=== PATIENT | female | born 1985 | race Two or more races ===

== ENCOUNTER → 2024-02-29 13:45 | Outpatient (REF) | payer BC, SELFPAY | LOC: HWRAD 13:45 | PROVIDERS: ATTENDING PHYSICIAN Advanced Practice Midwife; FAMILY PHYSICIAN Family Medicine | DX: N92.4 Excessive bleeding in the premenopausal period (principal) | CPT/HCPCS: 76830; 76856 ==

== ENCOUNTER 2024-03-29 06:51 | Day surgery (SDC) | payer BC, SELFPAY ==
[2024-03-24 13:41] VITALS: BMI 31.2
[2024-03-24 13:44] LABS: % Basophils 0.7 % (0-2); % Eosinophils 1.9 % (0-6); % Immature Granulocytes 0.4 % (0-0.5); % Lymphocytes 32.7 % (20.5-51.1); % Monocytes 5.3 % (1.7-9.3); Absolute Basophils 0.1 10^3/uL (0-0.2); Absolute Eosinophils 0.1 10^3/uL (0-0.7); Absolute Lymphocytes 2.2 10^3/uL (1.2-3.4); Absolute Monocytes 0.4 10^3/uL (0.1-0.6); Mean Corpuscular Hgb 28.2 pg (27.0-31.0); Mean Corpuscular Volume 80.6 fL (81.0-99.0); Mean Platelet Volume 9.9 fL (7.4-10.4); Nucleated Red Blood Cells % 0 %; Platelet Count 274 10^3/uL (130-400); Red Blood Cell Count 4.96 10^6/uL (4.20-5.40); Red Cell Dist. Width 12.6 % (11.5-14.5); White Blood Cell Count 6.8 10^3/uL (4.8-10.8)
[2024-03-24 13:57] LABS: Blood Urea Nitrogen 12 mg/dl (7-17); Calcium 9.8 mg/dl (8.4-10.2); Carbon Dioxide 31 mmol/L (22-30); Chloride 98 mmol/L (98-107); Estimated Creatinine Clearance 106 ml/min; Glucose 142 mg/dl (70-99); Sodium 135 mmol/L (135-145); eGFR > 60.00
[2024-03-24 14:35] LABS: HCG, Urine Qualitative Screen Negative
[2024-03-29 09:31] VITALS: BMI 31.2
[2024-03-29 09:39] LABS: Glucose - Point of Care 218 mg/dl (70-99)
[2024-03-29 09:43] VITALS: BP 126/78
[2024-03-29] MEDS: CELEBREX 200 MG PO (09:51)
[2024-03-29] MEDS: NORMOSOL-R 1000 IV (09:51)
[2024-03-29] MEDS: TYLENOL 1000 MG PO (09:51)
[2024-03-29] MEDS: NOVOLOG vial 2 UNITS SC (09:52)
[2024-03-29 11:46] VITALS: BP 126/78; BP 128/79
[2024-03-29 11:52] LABS: Glucose - Point of Care 180 mg/dl (70-99)
[2024-03-29 12:00] VITALS: BP 122/72
[2024-03-29 12:15] VITALS: BP 121/71
[2024-03-29 12:25] VITALS: BP 123/77
[2024-03-29 12:50] VITALS: BP 121/75
== END 2024-03-29 13:11 | disposition home or self-care (01) ==
LOC: SDS 06:51
PROVIDERS: ATTENDING PHYSICIAN Obstetrics & Gynecology; FAMILY PHYSICIAN Family Medicine
DX: N92.0 Excessive and frequent menstruation with regular cycle (principal); N84.0 Polyp of corpus uteri
CPT/HCPCS: 58558; 88305; 36415; 80048; 81025; 82962; 85025; 86850; 86900; 86901

== ENCOUNTER → 2024-12-23 09:56 | Outpatient (REF) | payer BC, SELFPAY | LOC: WDC 09:56 | PROVIDERS: ATTENDING PHYSICIAN Obstetrics & Gynecology; FAMILY PHYSICIAN Family Medicine | DX: N64.4 Mastodynia (principal); N63.20 Unspecified lump in the left breast, unspecified quadrant; N63.24 Unspecified lump in the left breast, lower inner quadrant | CPT/HCPCS: 76642; 77062; 77066 ==

== ENCOUNTER → 2025-02-10 14:00 | Outpatient (REF) | payer BC, SELFPAY | LOC: WDC 14:00 | PROVIDERS: ATTENDING PHYSICIAN Obstetrics & Gynecology | DX: R92.8 Other abnormal and inconclusive findings on diagnostic imaging of breast (principal) | CPT/HCPCS: 76642 ==

== ENCOUNTER → 2025-02-23 10:38 | Outpatient (REF) | payer BC, SELFPAY ==
--- NOTE | 2025-02-23 16:10 | OID.BR.INTR ---
OID Breast Navigator - Initial
- -
Did not meet patient at time of biopsy. Will follow up per protocol.
== END ==
LOC: WDC 10:38
PROVIDERS: ATTENDING PHYSICIAN Obstetrics & Gynecology; FAMILY PHYSICIAN Family Medicine
DX: N63.21 Unspecified lump in the left breast, upper outer quadrant (principal)
CPT/HCPCS: 19083; 88305; 88341; 88342; 88360

== ENCOUNTER 2025-06-14 07:24 | Outpatient (RCR) | payer BC, SELFPAY | END 2025-06-14 23:59 | disposition home or self-care (01) | LOC: RPT 07:24 | PROVIDERS: ATTENDING PHYSICIAN Surgery; FAMILY PHYSICIAN Family Medicine | DX: I97.2 Postmastectomy lymphedema syndrome (principal); C50.112 Malignant neoplasm of central portion of left female breast; D05.11 Intraductal carcinoma in situ of right breast; Z17.0 Estrogen receptor positive status [ER+]; Z73.6 Limitation of activities due to disability; Z90.13 Acquired absence of bilateral breasts and nipples | CPT/HCPCS: 97110; 97140; 97162; 97530 ==

== ENCOUNTER 2025-07-06 08:29 | Outpatient (RCR) | payer BC, SELFPAY | END 2025-07-06 23:59 | disposition home or self-care (01) | LOC: RPT 08:29 | PROVIDERS: ATTENDING PHYSICIAN Surgery; FAMILY PHYSICIAN Family Medicine | DX: I97.2 Postmastectomy lymphedema syndrome (principal); C50.112 Malignant neoplasm of central portion of left female breast; D05.11 Intraductal carcinoma in situ of right breast; Z17.0 Estrogen receptor positive status [ER+]; Z73.6 Limitation of activities due to disability; Z90.13 Acquired absence of bilateral breasts and nipples | CPT/HCPCS: 97110; 97112; 97140; 97164; 97530 ==

== ENCOUNTER 2025-07-17 07:25 | Outpatient (RCR) | payer BC, SELFPAY | END 2025-07-17 08:50 | disposition home or self-care (01) | LOC: RPT 07:25 | PROVIDERS: ATTENDING PHYSICIAN Surgery; FAMILY PHYSICIAN Family Medicine | DX: I97.2 Postmastectomy lymphedema syndrome (principal); C50.112 Malignant neoplasm of central portion of left female breast; Z17.0 Estrogen receptor positive status [ER+]; Z73.6 Limitation of activities due to disability; D05.11 Intraductal carcinoma in situ of right breast; R39.89 Other symptoms and signs involving the genitourinary system; Z90.13 Acquired absence of bilateral breasts and nipples | CPT/HCPCS: 97112; 97140; 97530 ==